=== PATIENT | female | born 1955 | race Caucasian/White ===

== ENCOUNTER 2019-08-25 16:59 | Emergency (ER) | payer SELFPAY ==
--- NOTE | 2019-08-25 18:31 | RAD REPORT ---
EXAM DESCRIPTION: Valarie Single View08/25/2019 6:18 pm CLINICAL HISTORY: fever COMPARISON: none FINDINGS: The right lung is hazy. The left lung is clear. The heart is normal size IMPRESSION: The right lung is hazy. This probably represents pneumonia. Another consideration is th at this is secondary to overlying breast implant. PA and lateral chest series is recommended
[2019-08-25] MEDS ORDERED: NA CHLORIDE 0.9% 0 ML ONE (18:46)
[2019-08-25] MEDS ORDERED: KETOROLAC 30 MG/ML INJ ONE (19:17)
--- NOTE | 2019-08-25 20:24 | ER ---
Nurse's Notes [facility] Name: Anabel Albrecht Age: 64 yrs Sex: Female : 1955 Arrival Date: 08/25/2019 Time: 17:02 Bed 19 Private MD: Diagnosis: Pneumonia in diseases classified elsewhere Presentation: 08/25 17:29 Presenting complaint: Patient states: Fever, chills, body aches, headache, cough, N/V/D ph since Tue, reports taking care of flu + child last week. Transition of care: patient was not received from another setting of care. Onset of symptoms was August 25, 2019. Risk Assessment: Do you want to hurt yourself or someone else? Patient reports no desire to harm self or others. Initial Sepsis Screen: Does the patient meet any 2 criteria? No. Patient's initial sepsis screen is negative. Does the patient have a suspected source of infection? No. Patient's initial sepsis screen is negative. Care prior to arrival: None. 17:29 Method Of Arrival: Wheelchair ph 17:29 Acuity: MARILYN 4 ph Historical: - Allergies: 17:34 Codeine; ph - PMHx: 17:34 Hypertension; Hyperlipidemia; GERD; ph - PSHx: 17:34 Hysterectomy; Carpal Tunnel Repair; breast augmentation; Cholecystectomy; ph - Immunization history:: Adult Immunizations up to date. - Social history:: Smoking status: Patient/guardian denies using tobacco, never smoked. - Ebola Screening: : No symptoms or risks identified at this time. Screenin:32 Abuse screen: Denies threats or abuse. Nutritional screening: No deficits noted. iw Tuberculosis screening: No symptoms or risk factors identified. Fall Risk None identified. Assessment: 18:25 General: Appears in no apparent distress. uncomfortable, Behavior is calm, cooperative, iw Reports fever for > 3 days. Pain: Complains of pain in "all over" Pain currently is 10 out of 10 on a pain scale. Pain began Tuesday. Neuro: Level of Consciousness is awake, alert, obeys commands, Oriented to person, place, time, situation, Appropriate for age. Cardiovascular: Capillary refill < 3 seconds Patient's skin is warm and dry. Respiratory: Reports cough that is productive, Airway is patent Respiratory effort is even, unlabored, Respiratory pattern is regular, symmetrical. Derm: Skin is intact, is healthy with good turgor, Skin is pink, warm \\T\\ dry. Musculoskeletal: Capillary refill < 3 seconds, Range of motion: intact in all extremities. 19:15 Reassessment: Patient appears in no apparent distress at this time. Patient and/or cc3 family updated on plan of care and expected duration. Pain level reassessed. Patient is alert, oriented x 3, equal unlabored respirations, skin warm/dry/pink. Received this female patient from morning shift [facility] as a case of flu symptoms, no IV cannula in situ. General: Appears in no apparent distress. uncomfortable, Behavior is calm, cooperative, appropriate for age. Pain: Complains of pain in generalized bodyaches. Neuro: Level of Consciousness is awake, alert, obeys commands, Oriented to person, place, time, situation, Appropriate for age. Cardiovascular: Denies chest pain, Heart tones S1 S2 present Capillary refill < 3 seconds in bilateral fingers Patient's skin is warm and dry. Respiratory: Airway is patent Respiratory effort is even, unlabored, Respiratory pattern is regular, symmetrical. GI: Abdomen is round non-distended, Bowel sounds present X 4 quads. Abd is soft and non tender X 4 quads. : No signs and/or symptoms were reported regarding the genitourinary system. EENT: No signs and/or symptoms were reported regarding the EENT system. Derm: Skin is intact, is healthy with good turgor, Skin is pink, warm \\T\\ dry. normal. Musculoskeletal: Circulation, motion, and sensation intact. Range of motion: intact in all extremities. 20:12 Reassessment: Patient appears in no apparent distress at this time. Patient and/or cc3 family updated on plan of care and expected duration. Pain level reassessed. Patient is alert, oriented x 3, equal unlabored respirations, skin warm/dry/pink. 21:05 Reassessment: Patient appears in no apparent distress at this time. Patient and/or cc3 family updated on plan of care and expected duration. Pain level reassessed. Patient is alert, oriented x 3, equal unlabored respirations, skin warm/dry/pink. LOSS PREVENTION DETECTIVE Yojana discharged the patient home with prescriptions given. No IV cannula in situ. Patient left ER vitally stable by wheelchair escorted by me and the patient's . NO valuables left in the patient's room. Patient denies pain at this time. Patient states feeling better. Patient states symptoms have improved. Vital Signs: 17:31 BP 138 / 81; Pulse 87; Resp 20; Temp 99.3; Pulse Ox 95% on R/A; Weight 67.13 kg; Height ph 5 ft. 6 in. (167.64 cm); Pain 10/10; 19:20 BP 133 / 66; Pulse 94; Resp 20 S; Temp 100.5(O); Pulse Ox 95% on R/A; cc3 20:50 BP 131 / 67; Pulse 89; Resp 19 S; Temp 99.8(O); Pulse Ox 96% on R/A; cc3 17:31 Body Mass Index 23.89 (67.13 kg, 167.64 cm) ph ED Course: 17:02 Patient arrived in ED. mr 17:24 SherrierobbBenjamin, [facility] la1 17:24 Benji Treviño MD is Attending Physician. la1 17:30 Triage completed. ph 17:34 Arm band placed on Patient placed in an exam room. ph 18:03 Rc Trujillo LVN is Primary Nurse. em 18:18 Chest Single View XRAY In Process Unspecified. EDMS 18:32 Patient has correct armband on for positive identification. Bed in low position. Call iw light in reach. Adult w/ patient. 20:16 Chest Pa And Lat (2 Views) XRAY In Process Unspecified. EDMS 21:05 No provider procedures requiring assistance completed. Patient did not have IV access cc3 during this emergency room visit. Administered Medications: 18:48 CANCELLED (Patient Refused): NS 0.9% 1000 ml IV at 1000 ml once la1 18:48 CANCELLED (Other Intervention Used): TORadol - Ketorolac 15 mg IM once la1 19:25 Drug: TORadol 30 mg Route: IM; Site: left gluteus; cc3 21:05 Follow up: Response: No adverse reaction; Pain is decreased cc3 20:50 Drug: Flexeril 10 mg Route: PO; cc3 21:05 Follow up: Response: No adverse reaction cc3 Outcome: 20:23 Discharge ordered by . la1 21:05 Discharged to home ambulatory, with family. cc3 21:05 Condition: stable 21:05 Discharge instructions given to patient, Instructed on discharge instructions, follow up and referral plans. medication usage, Demonstrated understanding of instructions, follow-up care, medications, Prescriptions given X 2. 21:10 Patient left the ED. cc3 Signatures: Dispatcher [employer] PATRICIA NeoMacrina mr Trujillo, Rc, TIPPLE GREASER TIPPLE GREASER Renetta George RN RN Benjamin Dial, SUGAR MIXER-C SUGAR MIXER-Cla1 Kenia Varela RN RN Rachel Pagan cc3
--- NOTE | 2019-08-25 20:24 | EDPHYS ---
Physician Documentation [facility] Name: Anabel Albrecht Age: 64 yrs Sex: Female : 1955 Arrival Date: 08/25/2019 Time: 17:02 Bed 19 Private MD: ED Physician Benji Trevñio HPI: 08/25 18:05 This 64 yrs old Female presents to ER via Wheelchair with complaints of Flu la1 Symptoms. 18:05 The patient reports fever, not measured (subjective). Onset: The symptoms/episode la1 began/occurred 5 day(s) ago. Modifying factors: The patient has had contact with sick other child. Associated signs and symptoms: Pertinent positives: arthralgias, backache, chills, cough. Severity of symptoms: At their worst the symptoms were mild. The patient has not experienced similar symptoms in the past. The patient has not recently seen a physician. pt reports body aches, chills, fevers at home, recent contact with flu A and PNE. pt tolerating PO, alert, VSS in room. Historical: - Allergies: 17:34 Codeine; ph - PMHx: 17:34 Hypertension; Hyperlipidemia; GERD; ph - PSHx: 17:34 Hysterectomy; Carpal Tunnel Repair; breast augmentation; Cholecystectomy; ph - Immunization history:: Adult Immunizations up to date. - Social history:: Smoking status: Patient/guardian denies using tobacco, never smoked. - Ebola Screening: : No symptoms or risks identified at this time. ROS: 18:06 Constitutional: + fever, chills, body aches Eyes: Negative for injury, pain, redness, la1 and discharge, ENT: Negative for injury, pain, and discharge, Neck: Negative for injury, pain, and swelling, Cardiovascular: Negative for chest pain, palpitations, and edema, Respiratory: Negative for shortness of breath, cough, wheezing, and pleuritic chest pain, Abdomen/GI: Negative for abdominal pain, nausea, vomiting, diarrhea, and constipation, Back: Negative for injury and pain, MS/Extremity: Negative for injury and deformity, Neuro: Negative for headache, weakness, numbness, tingling, and seizure, Endocrine: Negative for neck swelling, polydipsia, polyuria, polyphagia, and marked weight changes. Exam: 18:06 Constitutional: This is a well developed, well nourished patient who is awake, alert, la1 and in no acute distress. Head/Face: Normocephalic, atraumatic. ENT: Nares patent. No nasal discharge, no septal abnormalities noted. Tympanic membranes are normal and external auditory canals are clear. Oropharynx with no redness, swelling, or masses, exudates, or evidence of obstruction, uvula midline. Mucous membranes moist. Neck: Trachea midline, no thyromegaly or masses palpated, and no cervical lymphadenopathy. Supple, full range of motion without nuchal rigidity, or vertebral point tenderness. No Meningismus. Chest/axilla: Normal chest wall appearance and motion. Nontender with no deformity. No lesions are appreciated. Cardiovascular: Regular rate and rhythm with a normal S1 and S2. No gallops, murmurs, or rubs. Normal PMI, no JVD. No pulse deficits. Respiratory: Lungs have equal breath sounds bilaterally, clear to auscultation No rales, rhonchi or wheezes noted. No increased work of breathing, no retractions or nasal flaring. Abdomen/GI: Soft, non-tender, with normal bowel sounds. No distension . No guarding or rebound. No evidence of tenderness throughout. Back: No spinal tenderness. No costovertebral tenderness. Full range of motion. Neuro: Awake and alert, GCS 15, oriented to person, place, time, and situation. Normal gait. Vital Signs: 17:31 BP 138 / 81; Pulse 87; Resp 20; Temp 99.3; Pulse Ox 95% on R/A; Weight 67.13 kg; Height ph 5 ft. 6 in. (167.64 cm); Pain 10/10; 19:20 BP 133 / 66; Pulse 94; Resp 20 S; Temp 100.5(O); Pulse Ox 95% on R/A; cc3 20:50 BP 131 / 67; Pulse 89; Resp 19 S; Temp 99.8(O); Pulse Ox 96% on R/A; cc3 17:31 Body Mass Index 23.89 (67.13 kg, 167.64 cm) ph MDM: 17:44 Patient medically screened. la1 20:22 Differential diagnosis: viral Infection, bacterial infection, URI, bronchitis, la1 pneumonia UTI. Data reviewed: vital signs, nurses notes, lab test result(s), radiologic studies, I have discussed the patient's presentation/case with the attending Emergency Department Physician; and as a result, I will discharge patient. Data interpreted: Pulse oximetry: on room air is 95 %. Interpretation: normal. Test interpretation: by ED physician or midlevel provider: plain radiologic studies. Counseling: I had a detailed discussion with the patient and/or guardian regarding: the historical points, exam findings, and any diagnostic results supporting the discharge/admit diagnosis, lab results, radiology results, the need for outpatient follow up, a family practitioner. ED course: Pt room air sats >95, no resp distress noted. 08/25 17:51 Order name: Flu; Complete Time: 20:46 la1 08/25 17:51 Order name: Chest Single View XRAY; Complete Time: 18:34 la1 08/25 18:35 Order name: Chest Pa And Lat (2 Views) XRAY; Complete Time: 20:46 la1 08/25 18:42 Order name: SL; Complete Time: 18:43 la1 Administered Medications: 18:48 CANCELLED (Patient Refused): NS 0.9% 1000 ml IV at 1000 ml once la1 18:48 CANCELLED (Other Intervention Used): TORadol - Ketorolac 15 mg IM once la1 19:25 Drug: TORadol 30 mg Route: IM; Site: left gluteus; cc3 21:05 Follow up: Response: No adverse reaction; Pain is decreased cc3 20:50 Drug: Flexeril 10 mg Route: PO; cc3 21:05 Follow up: Response: No adverse reaction cc3 Disposition: 08/26 07:26 Co-signature as Attending Physician, Benji Treviño MD I agree with the assessment and kdr plan of care. Disposition: 08/25/19 20:23 Discharged to Home. Impression: Pneumonia in diseases classified elsewhere. - Condition is Stable. - Discharge Instructions: Community-Acquired Pneumonia, Adult. - Prescriptions for Zithromax Z- Charles 250 mg Oral Tablet - take 1 tablet by ORAL route as directed for 5 days Day 1 - take two (2) tablets one time. Day 2, 3, 4 , 5 take one (1) tablet once daily.; 6 tablet. Cyclobenzaprine 5 mg Oral Tablet - take 1 tablet by ORAL route 3 times per day As needed; 15 tablet. - Medication Reconciliation Form, Thank You Letter, Antibiotic Education form. - Follow up: Private Physician; When: 2 - 3 days; Reason: Recheck today's complaints, Re-evaluation by your physician. - Problem is new. - Symptoms have improved. Signatures: Dispatcher [employer] EDMS Benji Treviño MD MD kdr Benjamin Dial, QUARRYING SPECIALIST-C QUARRYING SPECIALIST-Cla1 Kenia Varela RN RN Rachel Mota cc3 Corrections: (The following items were deleted from the chart) 08/25 18:48 18:42 NS 0.9% 1000 ml IV at 1000 ml once ordered. nd1 la1 18:48 18:47 NS 0.9% 1000 ml IV at 1000 ml once ordered. [facility]1 18:48 18:48 TORadol - Ketorolac 15 mg IM once ordered. [facility] la1 21:10 17:51 Urine Dipstick-Ancillary ordered. [facility] cc3 21:10 20:23 08/25/2019 20:23 Discharged to Home. Impression: Pneumonia in diseases classified cc3 elsewhere. Condition is Stable. Discharge Instructions: Community-Acquired Pneumonia, Adult. Forms are Medication Reconciliation Form, Thank You Letter, Antibiotic Education, Prescription Opioid Use. Follow up: Private Physician; When: 2 - 3 days; Reason: Recheck today's complaints, Re-evaluation by your physician. Problem is new. Symptoms have improved. la1
--- NOTE | 2019-08-25 20:36 | RAD REPORT ---
EXAM DESCRIPTION: Valarie Pa And Lat (2 Views)08/25/2019 8:20 pm CLINICAL HISTORY: Cough COMPARISON: August 25, 2019 FINDINGS: Mild right lower lobe opacities consistent with pneumonia Left lung appears clear. Heart is normal size
[2019-08-25] MEDS ORDERED: CYCLOBENZAPRINE 10 MG TAB ONE (21:01)
[2019-08-25 22:18] VITALS: BP 133/66; TEMP 100.5; O2SAT 95
== END 2019-08-25 21:10 | disposition home or self-care (01) ==
LOC: ER 16:59
DX: J18.9 Pneumonia, unspecified organism (principal); Z88.6 Allergy status to analgesic agent
CPT/HCPCS: 71045; 71046; 87804; 96372; 99283; J7030

== ENCOUNTER 2021-02-05 08:22 | Inpatient (IN) | payer SELFPAY ==
--- OUTSIDE RECORDS SUMMARY | 2021-02-05 08:25 | XMS REPORT | Continuity of Care Document ---
:1955 Author Organization [facility] t Address [address] [place] [address] Dr. Dejesus [address] [place] [id number] Care Team Providers Name Role Phone UNKNOWN Primary Care Physician Unavailable JENNIFER LITTLE M.D. Attending Clinician Unavailable JENNIFER LITTLE M.D. Admitting Clinician Unavailable Problems This patient has no known problems. Allergies, Adverse Reactions, Alerts This patient has no known allergies or adverse reactions. Medications This patient has no known medications. Procedures This patient has no known procedures. Encounters Start End Encounter Admission Attending Care Care Encounter Source Date/Time Date/Time Type Type Clinicians Facility Department ID 2017-07-14 2017-07-14 Outpatient C JENNIFER LITTLE [facility] [id number] . 15:35:00 15:35:00 [facility] Results This patient has no known results.
[2021-02-05 09:23] LABS: Absolute Lymphocytes (CBC) 1.4 K/uL (0.7-4.9); Basophils % 1.1 % (0-1.3); Hematocrit 42.2 % (36.0-45.0); Lymphocytes % 19.2 % (15.3-44.8); MPV 8.2 fL (7.6-11.3); RBC Red Blood Cell Count 4.35 M/uL (3.86-4.86)
[2021-02-05 09:24] LABS: Protime INR 0.92
[2021-02-05] MEDS ORDERED: NITROGLYCERIN 0.4 MG/TAB SL ONE (09:31)
[2021-02-05 09:41] LABS: BUN Blood Urea Nitrogen 35 mg/dL (7-18); Bicarbonate 24 mmol/L (21-32); Glucose Level 88 mg/dL (74-106); Potassium 3.8 mmol/L (3.5-5.1); Sodium Level 138 mmol/L (136-145); Troponin (Emerg Dept Use Only) < 0.02 ng/mL (0.0-0.045)
[2021-02-05 09:45] LABS: NT PRO-BNP < 5 pg/mL (<125)
[2021-02-05] MEDS ORDERED: MEPERIDINE HCL 25 MG/ML SYR ONE ×2 (09:52→12:57)
--- NOTE | 2021-02-05 10:41 | RAD REPORT ---
EXAM DESCRIPTION: CT - Angio Aorta For Dissection - 02/05/2021 10:20 am CLINICAL HISTORY: . Chest and abdominal pain COMPARISON: None TECHNIQUE: Computed tomography angiography of the chest, abdomen pelvis were obtained. 100 cc Isovue 370 was administered intravenously. Coronal and sagittal reconstruction were performed. MIP 3D reconstruction was performed All CT scans are performed using dose optimization technique as appropriate and may include automated exposure control or mA/KV adjustment according to patient size. FINDINGS: An aortic dissection is not seen. An aortic aneurysm is not displayed. Mild narrowing of the celiac artery. SMA and TARIK are patent . A lung consolidation is not present. A pericardial effusion is not seen. A pleural effusion is not n oted. Calcified granuloma left lung Fatty liver Spleen, pancreas adrenals kidneys demonstrate no significant abnormality. No evidence of diverticulitis. Normal appendix IMPRESSION: Negative for an aortic dissection.
--- NOTE | 2021-02-05 10:44 | RAD REPORT ---
EXAM DESCRIPTION: Valarie Single View02/05/2021 9:21 am CLINICAL HISTORY: Chest pain COMPARISON: 2018 FINDINGS: The lungs appear clear of acute infiltrate. The heart is normal size IMPRESSION: No acute abnormalities displayed
--- NOTE | 2021-02-05 11:00 | EDPHYS ---
Physician Documentation [facility] Name: Anabel Albrecht Age: 65 yrs Sex: Female : 1955 Arrival Date: 02/05/2021 Time: 08:23 Bed 14 Private MD: Joel Maurice E ED Physician Heron Ricks HPI: 02/05 09:00 This 65 yrs old Female presents to ER via Ambulatory with complaints of Chest rn Pain, Back Pain. 09:00 The patient or guardian reports chest pain that is located primarily in the substernal rn area. Onset: 2 day(s) ago. The pain radiates to the right scapula, back. Associated signs and symptoms: Pertinent positives: nausea, Pertinent negatives: abdominal pain, cough, diaphoresis, lower extremity pain, lower extremity swelling, near syncope, syncope, vomiting. The chest pain is described as a heaviness. Duration: The patient or guardian reports multiple episodes. Modifying factors: The symptoms are alleviated by nothing. the symptoms are aggravated by nothing. Severity of pain: At its worst the pain was moderate in the emergency department the pain is unchanged. The patient has not experienced similar symptoms in the past. The patient has not recently seen a physician. Reports chest pain, began 2 days ago, intermittent, worse today, shooting to back and right scapula. No syncope. No fever/cough/abd pain. + nausea. NO hx of cardiac problems. Reports thinks had neg stress test 4 years ago. No trauma. No hx of dvt/pe.. Historical: - Allergies: 08:37 Codeine; aa5 - PMHx: 08:37 GERD; Hyperlipidemia; Hypertension; aa5 08:41 Thyroid problem; aa5 - PSHx: 08:37 Hysterectomy; Carpal Tunnel Repair; breast augmentation; Cholecystectomy; aa5 - Immunization history:: COVID-19 not up to date Flu vaccine is up to date. - Social history:: Smoking status: Patient denies any tobacco usage or history of. - Family history:: not pertinent. - Hospitalizations: : No recent hospitalization is reported. ROS: 09:00 Constitutional: Negative for fever, chills, and weight loss, Eyes: Negative for injury, rn pain, redness, and discharge, Neck: Negative for injury, pain, and swelling, Cardiovascular: Negative for palpitations, and edema, Respiratory: Negative for shortness of breath, cough, wheezing, and pleuritic chest pain, Abdomen/GI: Negative for abdominal pain, vomiting, diarrhea, and constipation, Back: Negative for injury and pain, : Negative for injury, bleeding, discharge, and swelling, MS/Extremity: Negative for injury and deformity, Skin: Negative for injury, rash, and discoloration, Neuro: Negative for headache, weakness, numbness, tingling, and seizure. Exam: 09:00 Constitutional: This is a well developed, well nourished patient who is awake, alert, rn and in no acute distress. Head/Face: Normocephalic, atraumatic. Eyes: Pupils equal round and reactive to light, extra-ocular motions intact. Lids and lashes normal. Conjunctiva and sclera are non-icteric and not injected. Cornea within normal limits. Periorbital areas with no swelling, redness, or edema. Cardiovascular: Regular rate and rhythm. No pulse deficits. Respiratory: No increased work of breathing, no retractions or nasal flaring. Abdomen/GI: Soft, non-tender Skin: Warm, dry with normal turgor. Normal color with no rashes, no lesions, and no evidence of cellulitis. MS/ Extremity: Pulses equal, no cyanosis. Neurovascular intact. Full, normal range of motion. Equal circumference. Neuro: Awake and alert, GCS 15, oriented to person, place, time, and situation. Cranial nerves II-XII grossly intact. Motor strength 5/5 in all extremities. Sensory grossly intact. Cerebellar exam normal. Normal gait. 09:24 ECG was reviewed by the Attending Physician. rn Vital Signs: 08:37 BP 146 / 82; Pulse 88; Resp 18 S; Temp 98.1(O); Pulse Ox 98% on R/A; Weight 68.04 kg aa5 (R); Height 5 ft. 6 in. (167.64 cm) (R); Pain 5/10; 09:17 BP 152 / 96; Pulse 96; Resp 21; Pulse Ox 100% on R/A; aj1 10:32 BP 133 / 80; Pulse 75; Resp 16; Pulse Ox 100% on R/A; aj1 11:52 BP 144 / 78; Pulse 83; Resp 18; Pulse Ox 100% on R/A; aj1 08:37 Body Mass Index 24.21 (68.04 kg, 167.64 cm) aa5 MDM: 08:47 Patient medically screened. rn 09:31 ED course: Nitro didn't help, patient feels like made pain worse. rn 10:57 Differential diagnosis: acute myocardial infarction, acute pericarditis, coronary rn artery disease chest wall pain, gastroesophageal reflux disease (GERD), pleurisy, pneumothorax, pulmonary embolus, stable angina, thoracic aortic disection, unstable angina. The patient was given aspirin in the Emergency Department. Data reviewed: vital signs, nurses notes, lab test result(s), EKG, radiologic studies, CT scan, plain films, and as a result, I will admit patient. Counseling: I had a detailed discussion with the patient and/or guardian regarding: the historical points, exam findings, and any diagnostic results supporting the discharge/admit diagnosis, lab results, radiology results, the need for further work-up and treatment in the hospital. Response to treatment: the patient's symptoms have mildly improved after treatment, and as a result, I will admit patient. Admission orders: after a detailed discussion of the patient's condition and case, the admit orders are written by me. 02/05 08:57 Order name: Basic Metabolic Panel rn 02/05 08:57 Order name: CBC with Diff rn 02/05 08:57 Order name: Magnesium rn 02/05 08:57 Order name: NT PRO-BNP; Complete Time: 10:35 02/05 08:57 Order name: PT-INR; Complete Time: 09:30 02/05 08:57 Order name: Troponin (emerg Dept Use Only); Complete Time: 10:35 02/05 08:57 Order name: XRAY Chest (1 view); Complete Time: 10:47 rn 02/05 08:57 Order name: CT Aorta for Dissection; Complete Time: 10:47 rn 02/05 08:57 Order name: Basic Metabolic Panel; Complete Time: 10:35 EDAK 02/05 08:57 Order name: CBC with Automated Diff; Complete Time: 09:30 EDMS 02/05 08:57 Order name: Magnesium; Complete Time: 10:35 EDAK 02/05 11:28 Order name: COVID-19 : Document "Date of Symptom Onset" if Symptomatic. aa5 02/05 13:46 Order name: SARS-COV-2 RT PCR EDAK 02/05 08:57 Order name: EKG; Complete Time: 08:58 rn 02/05 08:57 Order name: Cardiac monitoring; Complete Time: 08:58 rn 02/05 08:57 Order name: EKG - Nurse/Tech; Complete Time: 08:58 rn 02/05 08:57 Order name: IV Saline Lock; Complete Time: 09:15 rn 02/05 08:57 Order name: Labs collected and sent; Complete Time: : rn 02/05 08:57 Order name: O2 Per Protocol; Complete Time: 08: rn 02/05 08:57 Order name: O2 Sat Monitoring; Complete Time: 08:58 rn EC:24 Rate is 87 beats/min. Rhythm is regular. Left axis deviation noted. QRS is positive in rn lead I and negative in lead aVF. DE interval is normal. QRS interval is normal. QT interval is normal. No Q waves. T waves are Normal. No ST changes noted. Clinical impression: NSR w/ Non-specific ST/T Changes. Interpreted by me. Reviewed by me. Administered Medications: 09:15 Drug: Nitroglycerin 0.4 mg Route: Sublingual; aj1 09:36 Drug: Demerol (meperidine) 25 mg {Note: RASS score 0, patient is alert and oriented.} aj1 Route: IVP; Site: right forearm; 11:02 Drug: Aspirin Chewable Tablet 324 mg Route: PO; aj1 11:35 Drug: GI Cocktail without - (Maalox Suspension 30 ml, Lidocaine Liquid 2 % 15 aj1 ml) Route: PO; Disposition: 02/05/21 10:59 Hospitalization ordered by Jim Coon for Observation. Preliminary diagnosis is Chest pain, unspecified. - Bed requested for Telemetry/MedSurg (observation). - Status is Observation. aj1 - Condition is Stable. - Problem is new. - Symptoms have improved. Signatures: Dispatcher [employer] EDAK Kristel Orozco RN RN aj1 Carol Henriquez RN JUSTINO dw Heron Ricks MD MD rn Calderon, Audri, RN RN aa5 Corrections: (The following items were deleted from the chart) 11:31 10:59 Hospitalization Ordered by Jim Coon for Observation. Preliminary diagnosis aa5 is Chest pain, unspecified. Bed requested for Telemetry/MedSurg (observation). Status is Observation. Condition is Stable. Problem is new. Symptoms have improved. rn 15:23 11:31 02/05/2021 10:59 Hospitalization Ordered by Jim Coon for Observation. dw Preliminary diagnosis is Chest pain, unspecified. Bed requested for [facility] ER HOLD. Status is Observation. Condition is Stable. Problem is new. Symptoms have improved. aa5 18:03 15:23 02/05/2021 10:59 Hospitalization Ordered by Jim Coon for Observation. aj1 Preliminary diagnosis is Chest pain, unspecified. Bed requested for Telemetry/MedSurg (observation). Status is Observation. Condition is Stable. Problem is new. Symptoms have improved. dw
--- NOTE | 2021-02-05 11:00 | ER ---
Nurse's Notes [facility] Name: Anabel Albrecht Age: 65 yrs Sex: Female : 1955 Arrival Date: 02/05/2021 Time: 08:23 Bed 14 Private MD: Joel Maurice E Diagnosis: Chest pain, unspecified Presentation: 02/05 08:37 Chief complaint: Patient states: chest pain that began yesterday and today is radiating aa5 to "between shoulder blades". Pt reports mild SOB, reports nausea at this time. Denies recent illness. 08:37 Coronavirus screen: shortness of breath. Ebola Screen: Patient negative for fever aa5 greater than or equal to 101.5 degrees Fahrenheit, and additional compatible Ebola Virus Disease symptoms. Initial Sepsis Screen: Does the patient meet any 2 criteria? No. Patient's initial sepsis screen is negative. Does the patient have a suspected source of infection? No. Patient's initial sepsis screen is negative. Risk Assessment: Do you want to hurt yourself or someone else? Patient reports no desire to harm self or others. Onset of symptoms was January 2021. 08:37 Method Of Arrival: Ambulatory aa5 08:37 Acuity: MARILYN 3 aa5 Historical: - Allergies: 08:37 Codeine; aa5 - PMHx: 08:37 GERD; Hyperlipidemia; Hypertension; aa5 08:41 Thyroid problem; aa5 - PSHx: 08:37 Hysterectomy; Carpal Tunnel Repair; breast augmentation; Cholecystectomy; aa5 - Immunization history:: COVID-19 not up to date Flu vaccine is up to date. - Social history:: Smoking status: Patient denies any tobacco usage or history of. - Family history:: not pertinent. - Hospitalizations: : No recent hospitalization is reported. Screenin:10 Abuse screen: Denies threats or abuse. Denies injuries from another. Nutritional aj1 screening: No deficits noted. Tuberculosis screening: No symptoms or risk factors identified. 14:00 Fall Risk None identified. aj1 Assessment: 09:10 General: Appears in no apparent distress. uncomfortable, Behavior is calm, cooperative, aj1 appropriate for age. Pain: Complains of pain in chest Pain radiates to back Pain currently is 8 out of 10 on a pain scale. Pain began 1 day ago. Neuro: Level of Consciousness is awake, alert, obeys commands, Oriented to person, place, time, situation. Cardiovascular: Reports chest pain, nausea, shortness of breath, Heart tones S1 S2 present Patient's skin is warm and dry. Rhythm is sinus rhythm. Respiratory: Airway is patent Respiratory effort is even, unlabored, Respiratory pattern is regular, symmetrical. GI: No signs and/or symptoms were reported involving the gastrointestinal system. : No signs and/or symptoms were reported regarding the genitourinary system. EENT: No signs and/or symptoms were reported regarding the EENT system. Derm: No signs and/or symptoms reported regarding the dermatologic system. Skin is pink, warm \\T\\ dry. normal. Musculoskeletal: No signs and/or symptoms reported regarding the musculoskeletal system. Circulation, motion, and sensation intact. 10:14 Reassessment: Patient is in CT at this time. aj 10:32 Reassessment: Patient appears in no apparent distress at this time. Patient and/or [facility] family updated on plan of care and expected duration. Pain level reassessed. Patient is alert, oriented x 3, equal unlabored respirations, skin warm/dry/pink. Patient states that her pain is much better since administration of Demerol. 11:52 Reassessment: Patient appears in no apparent distress at this time. No changes from [facility] previously documented assessment. Patient and/or family updated on plan of care and expected duration. Pain level reassessed. Patient is alert, oriented x 3, equal unlabored respirations, skin warm/dry/pink. 13:00 Reassessment: Patient appears in no apparent distress at this time. No changes from aj1 previously documented assessment. Patient and/or family updated on plan of care and expected duration. Pain level reassessed. Patient is alert, oriented x 3, equal unlabored respirations, skin warm/dry/pink. 14:00 Reassessment: Charting continued in [facility]. aj1 Vital Signs: 08:37 BP 146 / 82; Pulse 88; Resp 18 S; Temp 98.1(O); Pulse Ox 98% on R/A; Weight 68.04 kg aa5 (R); Height 5 ft. 6 in. (167.64 cm) (R); Pain 5/10; 09:17 BP 152 / 96; Pulse 96; Resp 21; Pulse Ox 100% on R/A; aj1 10:32 BP 133 / 80; Pulse 75; Resp 16; Pulse Ox 100% on R/A; aj1 11:52 BP 144 / 78; Pulse 83; Resp 18; Pulse Ox 100% on R/A; aj1 08:37 Body Mass Index 24.21 (68.04 kg, 167.64 cm) aa5 ED Course: 08:23 Patient arrived in ED. mr 08:24 Joel Maurice MD is Private Physician. mr 08:37 Arm band placed on. aa5 08:41 Triage completed. aa5 08:46 EKG completed in triage. Results shown to MD. aa5 08:47 Heron Ricks MD is Attending Physician. rn 08:58 Kristel Orozco RN is Primary Nurse. aj1 09:10 Patient has correct armband on for positive identification. Bed in low position. Call aj1 light in reach. vehicle monitor technician on. Pulse ox on. NIBP on. 09:10 No provider procedures requiring assistance completed. Patient maintains SpO2 aj1 saturation greater than 95% on room air. 09:17 Initial lab(s) drawn, by me, sent to lab. EKG done. Inserted saline lock: 22 gauge in aj1 right forearm, using aseptic technique. Blood collected. 09:21 XRAY Chest (1 view) In Process Unspecified. EDMS 10:20 CT Aorta for Dissection In Process Unspecified. EDMS 10:58 Jim Coon is Hospitalizing Provider. rn 17:21 Patient admitted, IV remains in place. aj1 Administered Medications: 09:15 Drug: Nitroglycerin 0.4 mg Route: Sublingual; aj1 09:36 Drug: Demerol (meperidine) 25 mg {Note: RASS score 0, patient is alert and oriented.} aj1 Route: IVP; Site: right forearm; 11:02 Drug: Aspirin Chewable Tablet 324 mg Route: PO; aj1 11:35 Drug: GI Cocktail without - (Maalox Suspension 30 ml, Lidocaine Liquid 2 % 15 aj1 ml) Route: PO; Outcome: 10:59 Decision to Hospitalize by Provider. rn 17:21 Admitted to Med/surg accompanied by nurse, via wheelchair. aj1 17:21 Condition: good 17:21 Discharge instructions given to patient, family, Instructed on the need for admit, Demonstrated understanding of instructions. 18:03 Patient left the ED. aj1 Signatures: Dispatcher [employer] Kristel Kirk RN RN aj1 Macrina Larson mr Heron Ricks MD MD rn Calderon, Audri, RN RN aa5
[2021-02-05] MEDS ORDERED: ASPIRIN EC 81 MG TAB PO ONE (11:19)
[2021-02-05] MEDS ORDERED: LIDOCAINE VISCOUS 2% SOLN 15 ML UDC ONE (11:47)
[2021-02-05] MEDS ORDERED: MAGNES/ALUMIN/SIMET 30ML UCUP ONE (11:47)
--- NOTE | 2021-02-05 12:30 | P.HP ---
Certification for Inpatient Patient admitted to: Observation With expected LOS: <2 Midnights Practitioner: I am a practitioner with admitting privileges, knowledge of patient current condition, hospital course, and medical plan of care. Services: Services provided to patient in accordance with Admission requirements found in Title 42 Section 412.3 of the Code of Federal Regulations Patient History Date of Service: 02/05/21 Reason for admission: Chest pain History of Present Illness: 65-year-old woman with a history of hypertension, GERD and hypothyroidism presented to the emergency department due to chest pain of onset last night. Patient described anterior chest pain of 8/10 in severity, radiating to the mid back, between her shoulder blades, no known aggravating factors, not related to exertion, relieved by IV opioid given in the ED, no response to nitroglycerin. EKG demonstrated sinus tachycardia, no significant ischemic changes, initial troponin negative. CTA thorax done negative for pulmonary embolism or aortic dissection. CAD risk factors include hypertension and family history. Patient placed under observation for ACS rule out. Allergies codeine Adverse Reaction (Verified 02/05/21 12:12) Nausea/Vomiting Home Medications: Levothyroxine [Synthroid] 75 mcg PO [id number] 02/05/21 Losartan/Hydrochlorothiazide [Losartan-Hctz 100-25 mg Tab] 1 each PO DAILY 02/05/21 Pantoprazole Sodium [Protonix] 20 mg PO DAILY 02/05/21 Rosuvastatin [Crestor*] 10 mg PO DAILY 02/05/21 Zolpidem Tartrate [Ambien] 5 mg PO DAILY 02/05/21 - Past Medical/Surgical History -: Hypertension -: GERD -: Hypothyroidism -: Cholecystectomy - Family History Mother -: Heart disease - Social History Smoking Status: Never smoker Alcohol use: Yes CD- Drugs: No Place of Residence: Home Review of Systems Other: Patient endorsed palpitation and some shortness of breath. She denied any abdominal pain or epigastric pain. She denied any cough or fever. Except as documented, all other systems reviewed and negative. Physical Examination - Physical Exam General: Alert, In no apparent distress, Oriented x3 HEENT: Normocephalic, PERRLA, Mucous membr. moist/pink, Sclerae nonicteric Neck: Supple, JVD not distended Respiratory: Clear to auscultation bilaterally, Normal air movement Cardiovascular: No edema, Regular rate/rhythm, Normal S1 S2 Gastrointestinal: Normal bowel sounds, Soft and benign, Non-distended, No tenderness Musculoskeletal: No swelling, No tenderness Integumentary: No rashes, No erythema Neurological: Normal speech, Normal strength at 5/5 x4 extr Lymphatics: No axilla or inguinal lymphadenopathy - Studies Laboratory Data (last 24 hrs) 02/05/21 09:08: PT 10.6, INR 0.92 02/05/21 09:08: WBC 7.20, Hgb 14.5, Hct 42.2, Plt Count 279 02/05/21 09:08: Sodium 138, Potassium 3.8, BUN 35 H, Creatinine 0.74, Glucose 88, Magnesium 2.0 Assessment and Plan - Problems (Diagnosis) (1) Chest pain Current Visit: Yes Status: Acute (2) Hypertension Current Visit: Yes Status: Acute (3) GERD (gastroesophageal reflux disease) Current Visit: Yes Status: Acute (4) Hypothyroidism Current Visit: Yes Status: Acute - Plan Place under observation. Trend troponin. Start aspirin. Check lipid profile Nuclear stress test pending troponin result. Continue home antihypertensives and Synthroid. Check TSH. - Advance Directives Does patient have a Living Will: No Does patient have a Durable POA for Healthcare: No
[2021-02-05] MEDS ORDERED: NITROGLYCERIN 0.4 MG/TAB SL PRN (14:03)
[2021-02-05] MEDS: FENTANYL CITR 100 MCG/2 ML IV PRN ×2 (14:40→19:49)
[2021-02-05 14:50] VITALS: BMI 24.2
[2021-02-05] MEDS ORDERED: FENTANYL CITR 100 MCG/2 ML IV ONE (16:47)
[2021-02-05] MEDS ORDERED: FENTANYL CITR 100 MCG/2 ML ONE (17:11)
[2021-02-05 18:21] LABS: HDL Cholesterol 128 mg/dL (40-60); LDL Cholesterol, Calculated 104 (<130); Troponin I < 0.02 ng/mL (0.0-0.045)
[2021-02-05] MEDS ORDERED: ZOLPIDEM TARTRATE 5 MG TABLET PO PRN (18:24)
[2021-02-05] MEDS ORDERED: HYDRALAZINE HCL 20 MG/ML VIAL IV PRN (21:17)
[2021-02-05] MEDS: KETOROLAC 30 MG/ML INJ IV PRN (23:02)
[2021-02-05 23:36] LABS: Albumin 3.8 g/dL (3.4-5.0); Bilirubin Total 0.9 mg/dL (0.2-1.0); Potassium 4.1 mmol/L (3.5-5.1); Protein, Total 7.3 g/dL (6.4-8.2)
[2021-02-06] MEDS: KETOROLAC 30 MG/ML INJ IV PRN (05:36)
[2021-02-06] MEDS ORDERED: LEVOTHYROXINE SOD 0.075 MG TAB PO SCH (06:00)
[2021-02-06 06:39] LABS: Absolute Lymphocytes (CBC) 1.4 K/uL (0.7-4.9); Basophils % 1.4 % (0-1.3); Hematocrit 41.1 % (36.0-45.0); Lymphocytes % 19.4 % (15.3-44.8); MPV 8.4 fL (7.6-11.3)
[2021-02-06 07:38] LABS: Potassium 3.8 mmol/L (3.5-5.1); Thyroid Stimulating Hormone 0.457 uIU/mL (0.360-3.740)
[2021-02-06] MEDS ORDERED: ENOXAPARIN 40 MG/0.4 ML SQ SCH (09:00)
[2021-02-06] MEDS ORDERED: ROSUVASTATIN 10 MG TAB PO SCH (09:00)
[2021-02-06] MEDS ORDERED: ASPIRIN EC 81 MG TAB PO SCH (09:00)
[2021-02-06] MEDS ORDERED: PANTOPRAZOLE 40MG TABLET PO SCH (09:00)
[2021-02-06] MEDS ORDERED: LOSARTAN/HCTZ 50-12.5 PO SCH (09:00)
[2021-02-06] MEDS: FENTANYL CITR 100 MCG/2 ML IV PRN (09:04)
[2021-02-06 10:53] VITALS: O2SAT 96
[2021-02-06] MEDS ORDERED: REGADENOSON 0.4 MG/5 ML SYR IV ONE (10:56)
[2021-02-06] MEDS ORDERED: ALPRAZOLAM 0.5 MG TABLET PO ONE (12:31)
[2021-02-06 18:07] VITALS: BP 129/75; TEMP 97.8
--- NOTE | 2021-02-06 19:25 | P.DS ---
Admission Date: 02/06/21 Discharge Date: 02/06/21 Disposition: ROUTINE DISCHARGE Discharge Condition: FAIR Reason for Admission: Chest pain - Problems (1) Chest pain Current Visit: Yes Status: Acute (2) Hypertension Current Visit: Yes Status: Acute (3) GERD (gastroesophageal reflux disease) Current Visit: Yes Status: Acute (4) Hypothyroidism Current Visit: Yes Status: Acute Brief History of Present Illness: 65-year-old woman with a history of hypertension, GERD and hypothyroidism presented to the emergency department due to chest pain of onset last night. Patient described anterior chest pain of 8/10 in severity, radiating to the mid back, between her shoulder blades, no known aggravating factors, not related to exertion, relieved by IV opioid given in the ED, no response to nitroglycerin. EKG demonstrated sinus tachycardia, no significant ischemic changes, initial troponin negative. CTA thorax done negative for pulmonary embolism or aortic dissection. CAD risk factors include hypertension and family history. Patient hospitalized for ACS rule out. Hospital Course: Troponin trended negative. Patient continued to experience chest pain relieved with benzodiazepines. Patient's chest pain is atypical and likely normal cardiac. ACS ruled out. Likely related to anxiety. LDL cholesterol within normal limit. Advised low-fat low-cholesterol diet. Patient is currently asymptomatic and requests to go home. Patient is discharged with aspirin and informed to call Dr. Du 's office for arrangement for stress test as an outpatient. Vital Signs/Physical Exam: Temp Pulse Resp BP Pulse Ox 97.8 F 67 16 129/75 98 02/06/21 17:00 02/06/21 17:00 02/06/21 17:00 02/06/21 17:00 02/06/21 17:00 General: Alert, In no apparent distress, Oriented x3 HEENT: Mucous membr. moist/pink Neck: JVD not distended Respiratory: Clear to auscultation bilaterally, Normal air movement Cardiovascular: No edema, Regular rate/rhythm, Normal S1 S2 Gastrointestinal: Normal bowel sounds, Soft and benign, Non-distended Musculoskeletal: No swelling Integumentary: No rashes Neurological: Normal strength at 5/5 x4 extr Laboratory Data at Discharge: WBC 7.10 K/uL (4.3-10.9) 02/06/21 06:00 Hgb 13.7 g/dL (12.0-15.0) 02/06/21 06:00 Hct 41.1 % (36.0-45.0) 02/06/21 06:00 Plt Count 279 K/uL (152-406) 02/06/21 06:00 PT 10.6 SECONDS (9.5-12.5) 02/05/21 09:08 INR 0.92 02/05/21 09:08 Sodium 137 mmol/L (136-145) 02/06/21 06:00 Potassium 3.8 mmol/L (3.5-5.1) 02/06/21 06:00 BUN 38 mg/dL (7-18) H 02/06/21 06:00 Creatinine 0.76 mg/dL (0.55-1.3) 02/06/21 06:00 Glucose 84 mg/dL (74-106) 02/06/21 06:00 Magnesium 2.0 mg/dL (1.8-2.4) 02/05/21 09:08 Total Bilirubin 0.9 mg/dL (0.2-1.0) 02/05/21 21:28 AST 21 U/L (15-37) 02/05/21 21:28 ALT 32 U/L (12-78) 02/05/21 21:28 Alkaline Phosphatase 60 U/L (45-117) 02/05/21 21:28 Troponin I < 0.02 ng/mL (0.0-0.045) 02/06/21 02:07 Triglycerides 54 mg/dL (<150) 02/05/21 17:52 Cholesterol 243 mg/dL (<200) H 02/05/21 17:52 HDL Cholesterol 128 mg/dL (40-60) H 02/05/21 17:52 Cholesterol/HDL Ratio 1.90 02/05/21 17:52 Amylase 36 U/L (25-115) 02/05/21 21:28 Lipase 94 U/L (73-393) 02/05/21 21:28 Home Medications: Levothyroxine [Synthroid*] 75 mcg PO [id number] 02/05/21 Losartan/Hydrochlorothiazide [Losartan-Hctz 100-25 mg Tab] 1 each PO DAILY 02/05/21 Pantoprazole Sodium [Protonix] 20 mg PO DAILY 02/05/21 Rosuvastatin [Crestor*] 10 mg PO DAILY 02/05/21 Zolpidem Tartrate [Ambien] 5 mg PO DAILY 02/05/21 ALPRAZolam [Alprazolam] 0.25 mg PO TID PRN #9 tablet 02/06/21 Aspirin [Aspirin EC] 81 mg PO DAILY #30 tablet. 02/06/21 New Medications: ALPRAZolam [Alprazolam] 0.25 mg PO TID PRN #9 tablet PRN Reason: Anxiety Aspirin [Aspirin EC] 81 mg PO DAILY #30 tablet. Diet: AHA Activity: Ad tex Followup: Jarrett Malin PA [Primary Care Provider] - Ryan Du MD [ACTIVE - CAN ADMIT] - (Please call Dr. Du's office on Tuesday02/09/2021 at [phone] for arrangement for stress test.) Time spent managing pt's care (in minutes): 34
--- NOTE | 2021-02-09 08:19 | ECHO ---
HEIGHT: 5 ft 6 in WEIGHT: 150 lb 0 oz DATE OF STUDY: 02/06/[address]: mariano wong 2-DIMENSIONAL: YES M.MODE: YES DOPPLER: YES COLOR FLOW: YES TDS: YES PORTABLE: NO DEFINITY: NO BUBBLE STUDY: NO DIAGNOSIS: CHEST PAIN CARDIAC HISTORY: CATHERIZATION: SURGERY: PROSTHETIC VALVE: PACEMAKER: MEASUREMENTS (cm) DIASTOLIC (NORMALS) SYSTOLIC (NORMALS) IVSd 0.9 (0.6-1.2) LA Diam (1.9-4.0) LVEF 55-60% LVIDd 3.5 (3.5-5.7) LVIDs 20 (2.0-3.5) %FS 44% LVPWd 1.0 (0.6-1.2) Ao Diam 3.0 (2.0-3.7) 2 DIMENSIONAL ASSESSMENT: RIGHT ATRIUM: NORMAL LEFT ATRIUM: NORMAL RIGHT VENTRICLE: NORMAL LEFT VENTRICLE: NORMAL TRICUSPID VALVE: NORMAL MITRAL VALVE: NORMAL PULMONIC VALVE: NORMAL AORTIC VALVE: NORMAL PERICARDIAL EFFUSION: NONE AORTIC ROOT: NORMAL LEFT VENTRICULAR WALL MOTION: NORMAL DOPPLER/COLOR FLOW: NORMAL COMMENTS: NORMAL LEFT VENTRICULAR EJECTION FRACTION 55-60%. NORMAL WALL MOTION. NORMAL DIASTOLIC FUNCTION. TECHNOLOGIST: Isidro HARMON
== END 2021-02-06 20:20 | disposition home or self-care (01) | DRG 880 ==
LOC: ER 08:22 → ERHOLD 12:24 → 2ND 17:19 → OBSVTOIN 02-06 05:17
PROVIDERS: ADMIT Internal Medicine; ATTEND Internal Medicine
DX: F41.9 Anxiety disorder, unspecified (principal); K21.9 Gastro-esophageal reflux disease without esophagitis; E78.5 Hyperlipidemia, unspecified; I10 Essential (primary) hypertension; E03.9 Hypothyroidism, unspecified; R00.0 Tachycardia, unspecified; Z90.710 Acquired absence of both cervix and uterus; Z90.49 Acquired absence of other specified parts of digestive tract; Z79.899 Other long term (current) drug therapy; Z79.82 Long term (current) use of aspirin; Z88.5 Allergy status to narcotic agent; Z79.890 Hormone replacement therapy; Z20.822 Contact with and (suspected) exposure to COVID-19
CPT/HCPCS: 36415; 71045; 71275; 74175; 80048; 80053; 80061; 82150; 83690; 83735; 83880; 84443; 84484; 85025; 85610; 93005; 93306; 94760; 96374; 99285; G0378; J1650; J2175; J2785; J3010; Q9967; U0003